=== PATIENT | male | born 1975 | race Two or more races ===

== ENCOUNTER 2021-01-26 17:44 | Emergency (ER) | payer MEDICAID, OTHER ==
[~2021-01-26] VITALS: Ht 177.8 cm; Wt 113.4 kg
[2021-01-26 19:14] LABS: Hemoglobin 14.5 g/dL (13.5-17.5); Nucleated Red Blood Cells % 0.1 %
[2021-01-26 19:16] LABS: Basophils # (auto) 0 10 ^3/uL (0-0.2); Basophils % (auto) 0.4 % (0.0-2.0); Eosinophils # (auto) 0.1 10 ^3/uL (0-0.8); Eosinophils % (auto) 0.8 % (0.0-7.0); Hematocrit 44.2 % (41.0-53.0); Lymphocytes # (auto) 2.2 10 ^3/uL (0.4-5.4); Lymphocytes % (auto) 26.8 % (10.0-50.0); Mean Corpuscular Hemoglobin 26.5 pg (28.0-32.0); Mean Corpuscular Hgb Conc. 32.9 g/dL (32.0-36.0); Mean Corpuscular Volume 80.5 fL (80.0-100.0); Monocytes # (auto) 0.6 10 ^3/uL (0-1.3); Monocytes % (auto) 7.1 % (0.0-12.0); Neutrophils # (auto) 5.3 10 ^3/uL (1.6-8.6); Neutrophils % (auto) 64.9 % (37.0-80.0); Red Blood Cells 5.49 10^6/uL (4.5-5.90); Red Cell Distribution Width 18.3 % (11.8-14.3); White Blood Cell 8.2 10^3/uL (4.4-10.8)
[2021-01-26 19:27] LABS: Albumin 3.4 g/dL (3.4-5.0); Blood Urea Nitrogen 15 mg/dL (7-18); Chloride 110 mmol/L (98-107); Potassium 4.1 mmol/L (3.5-5.1); Sodium 139 mmol/L (136-145)
[2021-01-26 19:29] LABS: Amphetamine Screen, Urine NEGATIVE (NEGATIVE); Barbiturate Scree,Urine NEGATIVE (NEGATIVE); Benzodiazephine Screen, Urine NEGATIVE (NEGATIVE); Cannabinoid Screen, Urine NEGATIVE (NEGATIVE); Cocaine Screen, Urine NEGATIVE (NEGATIVE); Opiate Scree,Urine NEGATIVE (NEGATIVE); Phencyclidine Screen, Urine NEGATIVE (NEGATIVE)
[2021-01-26 19:30] LABS: Alanine Aminotransferase 64 U/L (16-61); Anion Gap 8 (5-15); Aspartate Aminotransferase 32 U/L (15-37); BUN/Creatinine Ratio 14.2; Carbon Dioxide 21 mmol/L (21-32); GFR African American 98 mL/min; GFR Non-African American 81 mL/min; Glucose 99 mg/dL (74-106)
[2021-01-26 19:31] LABS: Salicylate < 1.7 mg/dL (2.8-20.0)
[2021-01-26 19:33] LABS: Alkaline Phosphatase 76 U/L (45-117); Bilirubin, Total 0.3 mg/dL (0.2-1.0); Blood Alcohol < 3.0 mg/dL (0-5); Total Protein 7.5 g/dL (6.4-8.2)
[2021-01-26 19:37] LABS: Acetaminophen < 2.0 ug/mL (10-30)
[2021-01-27] MEDS ORDERED: ACCU-CHEK COMFORT CURVE STRIP VI SCH (11:30)
[2021-01-27 11:46] VITALS: BP 125/77
== END 2021-01-27 16:11 | disposition home or self-care (01) ==
LOC: EDBD 17:44 → ER 18:06
DX: T43.592A Poisoning by other antipsychotics and neuroleptics, intentional self-harm, initial encounter (principal); M54.9 Dorsalgia, unspecified; F31.9 Bipolar disorder, unspecified; I10 Essential (primary) hypertension; Y92.89 Other specified places as the place of occurrence of the external cause
CPT/HCPCS: 36415; 80053; 80178; 80307; 80320; 80329; 82550; 85025; 93005

== ENCOUNTER 2021-10-28 19:21 | Emergency (ER) | payer MEDICAID ==
[~2021-10-28] VITALS: Ht 180.3 cm; Wt 127.0 kg
[2021-10-28] MEDS ORDERED: cloNIDine HCL 0.1 MG TAB PO ONE (20:00)
[2021-10-28 23:01] LABS: Alcohol, Urine < 3.0 mg/dL (0-10); Amphetamine Screen, Urine NEGATIVE (NEGATIVE); Barbiturate Scree,Urine NEGATIVE (NEGATIVE); Benzodiazephine Screen, Urine NEGATIVE (NEGATIVE); Cannabinoid Screen, Urine NEGATIVE (NEGATIVE); Cocaine Screen, Urine NEGATIVE (NEGATIVE); Opiate Scree,Urine NEGATIVE (NEGATIVE); Phencyclidine Screen, Urine NEGATIVE (NEGATIVE)
[2021-10-28 23:13] LABS: Basophils # (auto) 0.1 10 ^3/uL (0-0.2); Basophils % (auto) 0.6 % (0.0-2.0); Eosinophils # (auto) 0.1 10 ^3/uL (0-0.8); Eosinophils % (auto) 0.9 % (0.0-7.0); Hematocrit 45.8 % (41.0-53.0); Hemoglobin 15.3 g/dL (13.5-17.5); Lymphocytes # (auto) 3.7 10 ^3/uL (0.4-5.4); Lymphocytes % (auto) 32.9 % (10.0-50.0); Mean Corpuscular Hemoglobin 29.2 pg (28.0-32.0); Mean Corpuscular Hgb Conc. 33.4 g/dL (32.0-36.0); Mean Corpuscular Volume 87.6 fL (80.0-100.0); Monocytes # (auto) 0.9 10 ^3/uL (0-1.3); Monocytes % (auto) 8.2 % (0.0-12.0); Neutrophils # (auto) 6.4 10 ^3/uL (1.6-8.6); Neutrophils % (auto) 57.4 % (37.0-80.0); Red Blood Cells 5.23 10^6/uL (4.5-5.90); Red Cell Distribution Width 15.4 % (11.8-14.3); White Blood Cell 11.2 10^3/uL (4.4-10.8)
[2021-10-28 23:31] LABS: Albumin 3.4 g/dL (3.4-5.0); BUN/Creatinine Ratio 11.4; Potassium 4.6 mmol/L (3.5-5.1)
[2021-10-28 23:34] LABS: Bilirubin, Total 0.2 mg/dL (0.2-1.0); Total Protein 6.7 g/dL (6.4-8.2)
[2021-10-28 23:46] LABS: Urine Amorphous Crystal FEW /hpf (None Seen); Urine Bacteria FEW /hpf (None Seen); Urine Blood Negative /uL (Negative); Urine Specific Gravity 1.011 (1.001-1.035); Urine WBC <1 /hpf (0 - 3)
[2021-10-29 05:57] VITALS: BP 133/81
[2021-10-29] MEDS ORDERED: QUET400T13 PO (10:52)
[2021-10-29] MEDS ORDERED: LITH300C3 PO (10:52)
[2021-10-29] MEDS ORDERED: LITHIUM CARBONATE 300 MG TAB PO SCH ×2 (11:59→22:00)
[2021-10-29] MEDS ORDERED: QUEtiapine FUMARATE 100 MG TAB PO SCH ×2 (22:00)
== END 2021-10-29 13:41 | disposition home or self-care (01) ==
LOC: EDBD 19:21 → ER 19:25
DX: T14.91XA Suicide attempt, initial encounter (principal); I10 Essential (primary) hypertension; F31.9 Bipolar disorder, unspecified
CPT/HCPCS: 36415; 80053; 80307; 80320; 81001; 85025

== ENCOUNTER 2023-07-24 15:33 | Emergency (ER) | payer SELFPAY ==
[~2023-07-24] VITALS: Ht 162.6 cm; Wt 129.0 kg
[~2023-07-24 15:33] MED LIST: LITH300C3 PO; QUET400T13 PO
[2023-07-24] MEDS ORDERED: PROMETHAZINE HCL 25 MG/ML 1ML IM ONE (17:30)
[2023-07-24] MEDS ORDERED: KETOROLAC TROMETH 30 MG/ML 1ML VIAL IM ONE (17:30)
[2023-07-24 18:23] VITALS: TEMP 97.9
[2023-07-24] MEDS ORDERED: AML5T PO (20:15)
[2023-07-24 20:57] VITALS: BP 150/96; PULSE 95; RESP 16; O2SAT 97
== END 2023-07-24 20:58 | disposition home or self-care (01) ==
LOC: ER 15:33
DX: I10 Essential (primary) hypertension (principal); F32.9 Major depressive disorder, single episode, unspecified; Z79.899 Other long term (current) drug therapy
CPT/HCPCS: 96372; 99284; J1885; J2550